=== PATIENT | male | born 1970 | race Caucasian/White ===

== ENCOUNTER 2017-07-24 13:47 | Emergency (ER) | payer OTHER ==
[2017-07-24] MEDS ORDERED: DIPH,PERTUSS(ACELL),TET VAC/PF 0.5 ML DISP.SYRIN IM ONE (13:56)
[2017-07-24 14:02] VITALS: BP 123/88
[2017-07-24] MEDS ORDERED: AMOXICILLIN/POT 875/125 1 EACH PO ONE (14:04)
[2017-07-24] MEDS ORDERED: TRIPLE ANTIBIOTIC OINTMENT PAC 1 PACKET TOP ONE (14:10)
--- NOTE | 2017-07-24 14:14 | ED Physician Documentation ---
Upper Extremity Injury - HISTORIAN Historian: patient - HPI Stated Complaint: cat bite Chief Complaint: Upper Extremity Injury Additional Information: bitten in left second finger by cat Onset: just prior to arrival Where: work Severity: mild Duration: persistent since (happened) Context: other (bite) Associated Symptoms: tingling Modifying Factors: none Further Comments: no - ROS CONST: no problems CVS/RESP: none NEURO: none MS/SKIN/LYMPH: none GI/: denies: problems urinating, nausea, vomiting - PAST HX Past History: Rt handed, other (anxiety, htn) Immunizations: tetanus Allergies/Adverse Reactions: Allergies Allergy/AdvReac Type Severity Reaction Status Date / Time No Known Allergies Allergy Verified 07/24/17 14:01 Home Medications: Ambulatory Orders Medication Instructions Recorded Sertraline HCl [Sertraline HCl] 1 tab PO DAILY 01/14/15 - SOCIAL HX Smoking History: cigarettes Alcohol Use: none Drug Use: none - FAMILY HX Family History: no significant history - VITAL SIGNS Vital Signs: Vital Signs Temp Pulse Resp BP Pulse Ox 97.6 F 88 16 123/88 97 07/24/17 13:49 07/24/17 14:30 07/24/17 14:30 07/24/17 14:30 07/24/17 14:30 - REVIEWED ASSESSMENTS Nursing Assessment Reviewed: Yes Vitals Reviewed: Yes Progress - Results/Orders Results/Orders: no testing ordered - Progress Progress: pt. given adacel in er Critical Care Note - Critical Care Note Total Time (mins): 0 ED Results Lab/Radiology - Lab Results Lab Results: none ordered - Radiology Radiology Impressions: none ordered - Orders Orders: ED Orders Category Date Time Status Further Nursing Orders 1T Care 07/24/17 14:10 Active Amoxicillin/Potassium Clav [Augmentin 875Mg/125Mg] Med 07/24/17 14:04 Discontinued 1 each PO NOW ONE Diph,Pertuss(Acell),Tet Vac/Pf [Adacel] Med 07/24/17 13:56 Discontinued 0.5 ml IM .ONCE ONE Triple Antibiotic Ointment Pac [Neosporin Packet] Med 07/24/17 14:10 Discontinued 1 packet TOP 1T ONE Upper Extremity Injury Physic - Physical Exam General Appearance: no acute distress, alert Hand: laceration (minimal redness, puncture noted) Wrist: normal inspection, non-tender, no evidence of injury Elbow/Forearm: normal inspection, non-tender Shoulder: normal inspection, non-tender Neuro/Vascular/Tendon: no vascular compromise, motor nml, sensation nml, abnml color Skin: warm,dry, diaphoretic Head/ENT: nml inspection, pharynx nml Neck/Back: nml inspection, non-tender Resp/CVS: chest non-tender, breath sounds nml, heart sounds nml, no resp. distress, lungs clear, reg. rate & rhythm Abdomen: non-tender Discharge Clincal Impression: Cat bite of finger Qualifiers: Encounter type: initial encounter Qualified Code(s): S61.259A - Open bite of unspecified finger without damage to nail, initial encounter Referrals: Polo Smith [Primary Care Provider] - 2 Days Comments: Discharged in stable condition with script for augmentin 875 mg p.o. bid x 10 days. Condition: Stable Disposition: 01 HOME, SELF-CARE Decision to Admit: NO Decision Time: 14:12
== END 2017-07-24 14:20 | disposition home or self-care (01) ==
LOC: ED 13:47
DX: S61.259A Open bite of unspecified finger without damage to nail, initial encounter (principal); W55.01XA Bitten by cat, initial encounter; Y93.9 Activity, unspecified; Y99.9 Unspecified external cause status
CPT/HCPCS: 90471; 90715; 99283